=== PATIENT | female | born 1940 | race Caucasian/White ===

== ENCOUNTER 2017-03-05 08:32 | Outpatient (CLI) | payer MEDICARE, MEDICAID ==
[2017-03-05 09:00] LABS: Hemoglobin A1c 5.9 % (4.0-6.0)
[2017-03-05 09:21] LABS: ALT (SGPT) 66 U/L (8-55); AST (SGOT) 44 U/L (5-34); Alkaline Phosphatase 91 U/L (40-150); Anion Gap 16 mmol/L (10-20); BUN (Urea Nitrogen) 17 mg/dL (9.8-20.1); Bilirubin, Direct 0.2 mg/dL (0.1-0.3); Bilirubin, Total 0.4 mg/dL (0.2-1.2); Calc. Creatinine Clearance 0 mL/min (70-130); Calcium 9.1 mg/dL (7.8-10.44); Carbon Dioxide 26 mmol/L (23-31); Cardiac Risk 3.8 (Less than 4.5); Chloride 103 mmol/L (98-107); Cholesterol 126 mg/dl (< 200 Desired); Estimated GFR-MDRD 70; Glucose 131 mg/dL (83-110); HDL Cholesterol 33 mg/dL (>60 Neg Risk); LDL Cholesterol, Calculated 58 mg/dL; Potassium 4.9 mmol/L (3.5-5.1); Protein, Total 6.6 g/dL (6.0-8.3); Sodium 140 mmol/L (136-145); Triglycerides 174 mg/dL (Less than 150)
== END 2017-03-05 08:33 | disposition home or self-care (01) ==
LOC: MADLAB 08:32
PROVIDERS: ATTEND Internal Medicine Cardiovascular Disease
DX: E78.00 Pure hypercholesterolemia, unspecified (principal); I10 Essential (primary) hypertension
CPT/HCPCS: 36415; 80048; 80061; 80076; 83036

== ENCOUNTER 2018-06-09 12:05 | Outpatient (CLI) | payer MEDICARE, MEDICAID ==
--- NOTE | 2018-06-09 13:06 | RAD ---
RIGHT HIP TWO VIEWS: History: Right hip pain. FINDINGS: Near complete loss of the joint space. Mild osteophytosis and subchondral sclerosis. Limited motion. Femoral head contour is maintained. IMPRESSION: Osteoarthritis right hip with near complete loss of joint space. POS: DENNIS
--- NOTE | 2018-06-09 13:07 | RAD ---
LEFT HIP TWO VIEWS: History: Left hip pain. FINDINGS: Mild to moderate joint space narrowing. Mild osteophytosis and subchondral sclerosis. Femoral head co ntour is maintained. IMPRESSION: Mild osteoarthritic changes left hip. POS: DENNIS
== END 2018-06-09 12:06 | disposition home or self-care (01) ==
LOC: MADRAD 12:05
PROVIDERS: ATTEND Family Medicine
DX: M25.552 Pain in left hip (principal); M16.12 Unilateral primary osteoarthritis, left hip

== ENCOUNTER 2021-01-17 10:51 | Outpatient (CLI) | payer MEDICARE, MEDICAID | END 2021-01-17 10:52 | disposition home or self-care (01) | LOC: MADRAD 10:51 | PROVIDERS: ATTEND Anesthesiology Pain Medicine | DX: M16.0 Bilateral primary osteoarthritis of hip (principal) ==

== ENCOUNTER 2024-03-13 10:24 | Emergency (ER) | payer OTHER, MEDICAID ==
[~2024-03-13 10:24] MED LIST: Iopamidol 370 76% 100 ML VIAL ONE; Sodium Chloride 0.9% 100 ML BAG ONE
[2024-03-13 11:10] LABS: INR-International Normal Ratio 1.1; Prothrombin Time 14.5 sec (12.0-14.7)
[2024-03-13 11:11] LABS: PTT 27.1 sec (22.9-36.1)
[2024-03-13 11:22] LABS: ALT (SGPT) 31 U/L (8-55); AST (SGOT) 27 U/L (5-34); Alkaline Phosphatase 102 U/L (40-110); Anion Gap 18 mmol/L (10-20); BUN (Urea Nitrogen) 39 mg/dL (9.8-20.1); Bilirubin, Total 0.7 mg/dL (0.2-1.2); Calc. Creatinine Clearance 0 mL/min (70-130); Carbon Dioxide 25 mmol/L (23-31); Chloride 102 mmol/L (98-107); Estimated GFR 48; Globulin 2.7 g/dL (2.4-3.5); Glucose 166 mg/dL (83-110); Potassium 5.5 mmol/L (3.5-5.1); Protein, Total 6.7 g/dL (5.8-8.1); Sodium 139 mmol/L (136-145)
[2024-03-13 11:23] LABS: Troponin I 0.019 ng/mL (< 0.028)
[2024-03-13 11:31] LABS: Anisocytosis SLIGHT = 6-15 cells (100X) (0-5/hpf); Hemoglobin 13.9 g/dL (12.0-16.0); Hypochromia SLIGHT = 6-15 cells (100X) (0-5/hpf); MDiff Complete? YES; Macrocytosis SLIGHT = 6-15 cells (100X) (0-5/hpf); Mean Corpuscular HGB CONC 28.9 g/dL (32.0-36.0); Mean Corpuscular Hemoglobin 28.8 pg (27.0-31.0); Mean Corpuscular Volume 99.7 fl (78.0-98.0); Mean Platelet Volume 8.6 fL (7.4-10.4); Platelet Adequacy Comment Appears Adequate; Platelet Count 192 10x3/uL (130-400); RBC Distribution Width 14.1 % (11.5-14.5); Red Blood Cell (RBC) Count 4.82 mill/uL (4.20-5.40); White Blood Cell (WBC) Count 9.4 10x3/uL (4.8-10.8)
[2024-03-13 11:32] LABS: Lymphocytes 14 % (21-51); Manual Diff?? YES; Neutrophil 72 % (42-75); Reactive Lymphocytes 4 % (0-10)
[2024-03-13 11:33] LABS: Eosinophils 2 % (0-10); Monocytes 8 % (0-10)
[2024-03-13 11:50] LABS: Base Excess-Venous 1.7 mmol/L (-2.0 to 3.0); Bicarbonate (HCO3v) 28.6 mmol/L (22.0-28.0); CO2 Tension (PvCO2) 51.9 mmHg (42.0-51.0); Chloride 103 mmol/L (98-107); Hemoglobin - Calc 16.4 g/dL (12.0-16.0); Sodium 139 mmol/L (138-145); T. Carbon Dioxide 30.1 mmol/L (22.0-28.0); vO2 Saturation-calc 99.5 % (60.0-85.0)
[2024-03-13 11:51] LABS: Bilirubin Negative (Negative); Blood, Urine Trace (Negative); Clarity Clear (Clear); Glucose, Urine (Dipstick) >=1000 mg/dL (Negative); Ketone, Urine Negative (Negative); Leukocyte Negative (Negative); Nitrite Negative (Negative); Protein, Urine (Dipstick) Negative (Neg-Trace); Specific Gravity, Urine 1.015 (1.005-1.030); Urobilinogen 0.2 mg/dL (Less than 2)
[2024-03-13 12:06] LABS: CAUTI Indications for Culture Dysuria,urgency,freq; RBC/HPF 0-3 HPF (0-3); Squamous Epithelial 0-3 HPF (0-3); WBC/HPF 0-3 HPF (0-3)
[2024-03-13 12:07] LABS: Bacteria/HPF None Seen HPF (None Seen); Urine Culture Reflex No No
[2024-03-13] MEDS ORDERED: Furosemide 40 MG (4 mL) VIAL ONE (13:57)
== END 2024-03-13 14:21 | disposition short-term general hospital (02) ==
LOC: MADERS 10:24
DX: I11.0 Hypertensive heart disease with heart failure (principal); I50.9 Heart failure, unspecified; E87.29 Other acidosis; E87.5 Hyperkalemia; I49.5 Sick sinus syndrome; E11.9 Type 2 diabetes mellitus without complications; E78.5 Hyperlipidemia, unspecified; Z79.899 Other long term (current) drug therapy; Z79.82 Long term (current) use of aspirin; Z79.84 Long term (current) use of oral hypoglycemic drugs
CPT/HCPCS: 71275; 80053; 81001; 82330; 82803; 83605; 83880; 84484; 85025; 85610; 85730; 87040; 93005; 94760; 96374; J1940; Q9967

== ENCOUNTER 2024-10-26 13:08 | Emergency (ER) | payer OTHER ==
[2024-10-26 14:52] LABS: ALT (SGPT) 21 U/L (8-55); AST (SGOT) 25 U/L (5-34); Albumin 3.3 g/dL (3.4-4.8); Alkaline Phosphatase 114 U/L (40-110); Anion Gap 15 mmol/L (10-20); BUN (Urea Nitrogen) 43 mg/dL (9.8-20.1); Bilirubin, Total 0.7 mg/dL (0.2-1.2); Calc. Creatinine Clearance 0 mL/min (70-130); Calcium 8.4 mg/dL (7.8-10.44); Carbon Dioxide 28 mmol/L (23-31); Chloride 101 mmol/L (98-107); Estimated GFR 36; Globulin 3.6 g/dL (2.4-3.5); Glucose 159 mg/dL (83-110); Potassium 4.8 mmol/L (3.5-5.1); Protein, Total 6.9 g/dL (5.8-8.1); Sodium 139 mmol/L (136-145)
[2024-10-26 14:56] LABS: Anisocytosis MODERATE=16-30 cells (100X) (0-5/hpf); Band 10 % (5-11); Hematocrit 40.4 % (36.0-47.0); Hemoglobin 12.1 g/dL (12.0-16.0); Hypochromia MODERATE=16-30 cells (100X) (0-5/hpf); Lymphocytes 12 % (21-51); MDiff Complete? YES; Mean Corpuscular HGB CONC 29.9 g/dL (32.0-36.0); Mean Corpuscular Hemoglobin 28.8 pg (27.0-31.0); Mean Corpuscular Volume 96.5 fl (78.0-98.0); Mean Platelet Volume 7.5 fL (7.4-10.4); Monocytes 15 % (0-10); Neutrophil 58 % (42-75); Platelet Adequacy Comment Appears Adequate; Platelet Count 252 10x3/uL (130-400); RBC Distribution Width 15.4 % (11.5-14.5); Red Blood Cell (RBC) Count 4.19 mill/uL (4.20-5.40); White Blood Cell (WBC) Count 8.9 10x3/uL (4.8-10.8)
[2024-10-26 15:02] LABS: Base Excess-Venous 3.1 mmol/L (-2.0 to 3.0); Bicarbonate (HCO3v) 29.5 mmol/L (22.0-28.0); CO2 Tension (PvCO2) 50.8 mmHg (42.0-51.0); Calcium, Ionized 1.11 mmol/L (1.15-1.33); Chloride 102 mmol/L (98-107); Hemoglobin - Calc 15.1 g/dL (12.0-16.0); Potassium 4.7 mmol/L (3.5-5.1); Sodium 139 mmol/L (138-145); T. Carbon Dioxide 31.1 mmol/L (22.0-28.0); vO2 Saturation-calc 60.5 % (60.0-85.0)
[2024-10-26] MEDS ORDERED: Furosemide 40 MG (4 mL) VIAL ONE (15:12)
[2024-10-26] MEDS ORDERED: Cephalexin 500 MG CAP ONE (16:34)
[2024-10-26 17:00] LABS: Troponin I Less than 0.010 ng/mL (< 0.028)
[2024-10-26] MEDS ORDERED: Pramipexole Di-HCl 0.25 MG TAB PO SCH (17:45)
[2024-10-26] MEDS ORDERED: Acetaminophen 500 MG TAB ONE (20:20)
[2024-10-26] MEDS ORDERED: Ondansetron PF 4 MG/2 ML Vial ONE (20:20)
[2024-10-26] MEDS ORDERED: Morphine 2 MG/ML VIAL ONE (20:21)
== END 2024-10-26 21:34 | disposition short-term general hospital (02) ==
LOC: MADERS 13:08
DX: I11.0 Hypertensive heart disease with heart failure (principal); I50.31 Acute diastolic (congestive) heart failure; E11.9 Type 2 diabetes mellitus without complications; I25.10 Atherosclerotic heart disease of native coronary artery without angina pectoris; K21.9 Gastro-esophageal reflux disease without esophagitis; Z79.82 Long term (current) use of aspirin; Z79.899 Other long term (current) drug therapy; Z95.1 Presence of aortocoronary bypass graft; Z79.84 Long term (current) use of oral hypoglycemic drugs
CPT/HCPCS: 71045; 80053; 82330; 82435; 82803; 83605; 83880; 84132; 84295; 84484; 85014; 85025; 93005; 96374; 96375; 99284; J1940; J2272; J2405; 36415